=== PATIENT | male | born 1945 | race Caucasian/White ===

== ENCOUNTER 2019-12-24 22:19 | Emergency (ER) | payer MEDICARE, OTHER ==
--- NOTE | 2019-12-24 22:38 | EDM.PDOC ---
ED HPI GENERAL MEDICAL PROBLEM - General Chief Complaint: Genitourinary Problem Stated Complaint: UNABLE TO URINATE Time Seen by Provider: 12/24/19 22:36 - History of Present Illness INITIAL COMMENTS - FREE TEXT/NARRATIVE: 74-year-old male presents the emergency room with the inability to void. Patient had 3 stents placed in his right leg at the end of last week. He was discharged in the hospital on Saturday with a Laureano in place. He was also started on Flomax at that point. Today the patient saw his regular physician who remove that the catheter. This was done around 4:00 this afternoon the patient has had difficulty voiding since then he was able to get a stream going just briefly. And he presents wondering if he needs to have a catheter placed again. He denies any fevers or chills or abdominal pain Bladder Pain Score (Numeric/FACES): 4 - Related Data Allergies Allergy/AdvReac Type Severity Reaction Status Date / Time No Known Allergies Allergy Verified 12/24/19 22:33 Home Meds: Home Meds Nitrofurantoin Monohyd/M-Cryst [Macrobid 100 mg Capsule] 100 mg PO BID #13 capsule 12/25/19 [Rx] ED ROS GENERAL - Review of Systems Review Of Systems: See Below Constitutional: Reports: No Symptoms HEENT: Reports: No Symptoms Respiratory: Reports: No Symptoms Cardiovascular: Reports: No Symptoms GI/Abdominal: Reports: No Symptoms : Reports: Urinary Retention ED EXAM, GI/ABD - Physical Exam Exam: See Below Exam Limited By: No Limitations General Appearance: Alert, No Apparent Distress Head: Atraumatic, Normocephalic Neck: Normal Inspection, Supple, Non-Tender, Full Range of Motion Respiratory/Chest: No Respiratory Distress, Lungs Clear, Normal Breath Sounds Cardiovascular: Regular Rate, Rhythm, No Edema, No Murmur GI/Abdominal Exam: Normal Bowel Sounds, Soft, Other (He has mild discomfort over the bladder). No: Guarding, Rigid, Rebound Course - Vital Signs Last Recorded V/S: Last Vital Signs Temp 36.2 C 12/24/19 22:39 Pulse 72 12/24/19 22:39 Resp 20 12/24/19 22:39 BP 142/85 H 12/24/19 22:39 Pulse Ox 99 12/24/19 22:39 - Orders/Labs/Meds Orders: Active Orders 24 hr Category Date Time Status CULTURE URINE [RM] Stat Lab 12/24/19 23:51 Received Labs: Laboratory Tests 12/24/19 Range/Units 23:51 Urine Color Yellow (Yellow) Urine Appearance Clear (Clear) Urine pH 6.0 (5.0-8.0) Ur Specific [place] 1.015 (1.005-1.030) Urine Protein Negative (Negative) Urine Glucose (UA) Negative (Negative) Urine Ketones Negative (Negative) Urine Occult Blood 1+ H (Negative) Urine Nitrite Negative (Negative) Urine Bilirubin Negative (Negative) Urine Urobilinogen 0.2 (0.2-1.0) Ur Leukocyte Esterase 1+ H (Negative) Urine RBC 5-10 H (0-5) /hpf Urine WBC 5-10 H (0-5) /hpf Ur Epithelial Cells 0-5 (0-5) /hpf Urine Bacteria Rare (FEW) /hpf Urine Mucus Not seen (FEW) /hpf - Re-Assessments/Exams Free Text/Narrative Re-Assessment/Exam: 12/24/19 23:42 Was able to void about 50 cc after bladder scan showed about 500 cc. At this po int waiting on urinalysis. At this point I really do not want us put another catheter in place and the patient is in agreement to this understanding he may be back tomorrow to have a catheter placed we will have him work on bladder training exercises so he can get his stream going on a more regular basis. The patient is in full agreement to this. He understands fully that he may need a catheter placed anyway but we will give it a shot to see if we can save him the problems associated with the catheter. 12/25/19 00:45 Urinalysis is complete potentially he could have an early urinary tract in fection developing I will go and start him on a week's worth of Macrobid as he is can have some urinary retention issues which increases the likelihood of developing an infection. Departure - Departure Time of Disposition: 00:45 Disposition: Home, Self-Care 01 Clinical Impression: Urinary retention due to benign prostatic hyperplasia - Discharge Information Instructions: Miah Tam Referrals: Luiz Albrecht MD [Primary Care Provider] - Forms: ED Department Discharge Additional Instructions: Return to the emergency room with any questions problems or if unable to get your stream going. You have been started on a antibiotic as your urine is suggestive of a possible developing urinary tract infection and with your urinary retention your risk of developing a infection is much higher. You have been started on Macrobid take 1 twice daily until all gone. Follow-up with your regular healthcare provider as scheduled. Sepsis Event Note (ED) - Focused Exam Vital Signs: Vital Signs Temp Pulse Resp BP Pulse Ox 12/24/19 22:39 36.2 C 72 20 142/85 H 99 - My Orders Last 24 Hours: My Active Orders 12/24/19 23:51 CULTURE URINE [RM] Stat - Assessment/Plan Last 24 Hours: My Active Orders 12/24/19 23:51 CULTURE URINE [RM] Stat
[2019-12-25] MEDS ORDERED: Nitrofurantoin Monohydrate/Macrocrystalline 100 MG Cap PO ONE (00:48)
== END 2019-12-25 01:05 | disposition home or self-care (01) ==
LOC: JD.ED 22:19
DX: N40.1 Benign prostatic hyperplasia with lower urinary tract symptoms (principal); R33.8 Other retention of urine
CPT/HCPCS: 81001; 87086; 99283; A9270

== ENCOUNTER 2019-12-26 17:31 | Emergency (ER) | payer MEDICARE, OTHER ==
--- NOTE | 2019-12-26 18:28 | EDM.PDOC ---
ED HPI GENERAL MEDICAL PROBLEM - General Chief Complaint: Lower Extremity Injury/Pain Stated Complaint: ANKLE SWELLING POSSIBLE BLOOD CLOT Time Seen by Provider: 12/26/19 18:07 Source of Information: Reports: Patient History Limitations: Reports: No Limitations - History of Present Illness INITIAL COMMENTS - FREE TEXT/NARRATIVE: Patient is a 74-year-old male presenting to the emergency department with complaints of swelling to his right ankle. He had an artery cutdown in his left lower extremity on 17 December of this year. This was done with Dr. Goldstein, vascular surgeon at [facility] in [place]. He states that he contacted [facility] today to let them know of the swelling and they requested he come to the ER to have an ultrasound of his lower extremity done to look for blood clots. He denies any pain to the lower extremity. Denies a history of blood clots. States that he takes an aspirin daily for his heart and since her surgery has been started on Plavix. - Related Data Allergies Allergy/AdvReac Type Severity Reaction Status Date / Time No Known Allergies Allergy Verified 12/24/19 22:33 Home Meds: Home Meds Nitrofurantoin Monohyd/M-Cryst [Macrobid 100 mg Capsule] 100 mg PO BID #13 capsule 12/25/19 [Rx] Past Medical History HEENT History: Reports: Cataract Cardiovascular History: Reports: Hypertension, Other (See Below) Other Cardiovascular History: stress test for jan 06 Gastrointestinal History: Reports: GERD Genitourinary History: Reports: Prostate Disorder Musculoskeletal History: Reports: Arthritis, Gout - Infectious Disease History Infectious Disease History: Reports: Novel Coronavirus - Past Surgical History Cardiovascular Surgical History: Reports: Other (See Below) Other Cardiovascular Surgeries/Procedures: arterial cutdown of right femoral Social & Family History - Tobacco Use Smoking Status *Q: Never Smoker - Caffeine Use Caffeine Use: Reports: Coffee, Soda - Recreational Drug Use Recreational Drug Use: No Review of Systems - Review of Systems Review Of Systems: See Below Constitutional: Reports: No Symptoms. Denies: Chills, Fever Eyes: Reports: No Symptoms Ears: Reports: No Symptoms Nose: Reports: No Symptoms Mouth/Throat: Reports: No Symptoms Respiratory: Reports: No Symptoms Cardiovascular: Reports: Edema (Right ankle) GI/Abdominal: Reports: No Symptoms Genitourinary: Reports: No Symptoms Musculoskeletal: Reports: No Symptoms Skin: Reports: No Symptoms Neurological: Reports: No Symptoms Psychiatric: Reports: No Symptoms ED EXAM, GENERAL - Physical Exam Exam: See Below General Appearance: Alert, WD/WN, No Apparent Distress Respiratory/Chest: No Respiratory Distress, Lungs Clear, Normal Breath Sounds, No Accessory Muscle Use, Chest Non-Tender Cardiovascular: Normal Peripheral Pulses, Regular Rate, Rhythm, No Gallop, No JVD, No Murmur, No Rub, Other (1+ edema to right ankle) Peripheral Pulses: 2+: Dorsalis Pedis (R) Extremities: Normal Inspection, Normal Range of Motion, Non-Tender, Normal Capillary Refill, No Pedal Edema Neurological: Alert, Oriented, CN II-XII Intact, Normal Cognition, Normal Gait, Normal Reflexes, No Motor/Sensory Deficits Psychiatric: Normal Affect, Normal Mood Skin Exam: Other (well approximated, scabbed incision to right groin. Small amount of errythema surrounding incision. No warmth, edema, or drainage.) Course - Vital Signs Last Recorded V/S: Last Vital Signs Temp 97.6 F 12/26/19 17:52 Pulse 66 12/26/19 17:52 Resp 16 12/26/19 17:52 BP 130/64 12/26/19 17:52 Pulse Ox 96 12/26/19 17:52 - Orders/Labs/Meds Orders: Active Orders 24 hr Category Date Time Status Influenza Vaccine Charge [] .DISCHARGE Care 12/26/19 18:17 Active VL Duplex Lwr Ext Veins Ltd Rt [US] Stat Exams 12/26/19 18:18 Taken Meds: Medications Discontinued Medications Generic Name Dose Route Start Last Admin Trade Name Freq PRN Reason Stop Dose Admin Influenza Virus Vaccine 1 each 12/26/19 18:16 Pharmacy To Dose - Influenza Vaccine IM 12/26/19 18:17 ONETIME ONE Influenza Virus Vaccine 240 mcg 12/26/19 18:30 12/26/19 19:36 Fluzone High-Dose Quad 2020-21 IM 12/26/19 18:31 240 mcg .ONCE ONE Administration - Re-Assessments/Exams Free Text/Narrative Re-Assessment/Exam: Patient is a 74-year-old male presenting to the emergency department with concerns of mild swelling to his right ankle after having an artery cutdown towards the end of November. He called and spoke with [facility] in [place] and they recommended he have an ultrasound of his lower extremity done to rule out blood clots. Denies any history of blood clots. He is currently taking Plavix and a baby aspirin. On exam, he does have 1+ edema to the right ankle. There is no warmth or redness to the area. Denies any pain or tenderness. I have ordered a venous Doppler ultrasound of the right lower extremity. 12/26/19 20:00 Venous Doppler of the right lower extremity was negative for DVT. Patient discussed that he has been having some problems having bowel movements. Discussed use of MiraLAX as needed. He is agreement with this plan. Recommend follow-up with his vascular surgeon as scheduled. Return to ER for any worsening symptoms. Discharge instructions as documented. Departure - Departure Time of Disposition: 20:01 Disposition: Home, Self-Care 01 Condition: Good Clinical Impression: Peripheral edema - Discharge Information Instructions: Peripheral Edema Referrals: Luiz Albrecht MD [Primary Care Provider] - Bryan Goldstein MD [Ordering Only Provider] - Forms: ED Department Discharge Additional Instructions: You were seen in the emergency department today for some swelling to your right ankle after having an artery cutdown done on 17 December. Ultrasound was completed of your right lower extremity and was negative for any blood clots. Recommend that you elevate your leg when at rest. With regards to your difficulty having bowel movements. I would recommend that you try using [id number] MiraLAx daily. You may use this in addition to your Metamucil as needed. If you experience any new or worsening symptoms of concern, please do not hesitate to return to the emergency department. Sepsis Event Note (ED) - Evaluation Sepsis Screening Result: No Definite Risk - Focused Exam Vital Signs: Vital Signs Temp Pulse Resp BP Pulse Ox 12/26/19 17:52 97.6 F 66 16 130/64 96 - My Orders Last 24 Hours: My Active Orders 12/26/19 18:17 Influenza Vaccine Charge [RC] .DISCHARGE 12/26/19 18:18 VL Duplex Lwr Ext Veins Ltd Rt [US] Stat - Assessment/Plan Last 24 Hours: My Active Orders 12/26/19 18:17 Influenza Vaccine Charge [RC] .DISCHARGE 12/26/19 18:18 VL Duplex Lwr Ext Veins Ltd Rt [US] Stat
[2019-12-26] MEDS ORDERED: FLU Vacc QV2020-21(65YR UP)/PF 240 MCG/0.7 ML Syringe IM ONE (18:30)
== END 2019-12-26 20:15 | disposition home or self-care (01) ==
LOC: JD.ED 17:31
DX: R60.0 Localized edema (principal); I10 Essential (primary) hypertension; Z86.19 Personal history of other infectious and parasitic diseases
CPT/HCPCS: 90662; 93971; 99283; G0008; 99282

== ENCOUNTER 2020-06-10 18:26 | Emergency (ER) | payer MEDICARE, OTHER ==
[2020-06-10] MEDS ORDERED: Sodium Chloride 0.9% 10 ML Syringe FLUSH PRN (18:45)
[2020-06-10] MEDS ORDERED: Dicyclomine 10 MG Cap PO ONE (18:47)
[2020-06-10] MEDS ORDERED: Hyoscyamine 0.125 MG Tab.SL SL ONE (18:47)
--- NOTE | 2020-06-10 19:15 | EDM.PDOC ---
ED HPI GENERAL MEDICAL PROBLEM - General Chief Complaint: Chest Pain Stated Complaint: CHEST PRESSURE Time Seen by Provider: 06/10/20 18:35 Source of Information: Reports: Patient History Limitations: Reports: No Limitations - History of Present Illness INITIAL COMMENTS - FREE TEXT/NARRATIVE: 74-year-old male presents to the emergency department today with complaints with chest pressure. Patient states he has had intermittent chest pressure since Saturday after receiving his second Covid vaccination. Patient states it does come and go however when he belches it seems to relieve the pressure. Patient does admit to having a history of GERD. He states on Saturday evening he did have a fever however he had had his second Covid vaccination that day and he has not had a fever since. Patient states on Saturday evening he woke up in the middle the night to use the bathroom and when ambulating back to his room he did have some shortness of breath however he went to bed and put his CPAP on and this resolved. He has not had any further issues of shortness of breath since Saturday evening. And states that the time of triage that his chest pressure has resolved. Chest Pain Score (Numeric/FACES): 4 - Related Data Allergies Allergy/AdvReac Type Severity Reaction Status Date / Time No Known Allergies Allergy Verified 06/10/20 18:36 Home Meds: Home Meds Allopurinol [Zyloprim] 100 mg PO DAILY 06/10/20 [History] Irbesartan/Hydrochlorothiazide [Irbesartan-Hctz 150-12.5 mg Tb] 1 tab PO DAILY 06/10/20 [History] Metoprolol Succinate 50 mg PO DAILY 06/10/20 [History] Omeprazole 20 mg PO DAILY 06/10/20 [History] Pravastatin [Pravachol] 80 mg PO DAILY 06/10/20 [History] Tamsulosin [Flomax] 0.4 mg PO DAILY 06/10/20 [History] amLODIPine [Norvasc] 5 mg PO DAILY 06/10/20 [History] Past Medical History HEENT History: Reports: Cataract Cardiovascular History: Reports: High Cholesterol, Hypertension, Other (See Below) Other Cardiovascular History: stress test for jan 06 Gastrointestinal History: Reports: GERD Genitourinary History: Reports: Prostate Disorder Musculoskeletal History: Reports: Arthritis, Gout - Infectious Disease History Infectious Disease History: Reports: Novel Coronavirus - Past Surgical History Cardiovascular Surgical History: Reports: Other (See Below) Other Cardiovascular Surgeries/Procedures: arterial cutdown of right femoral Social & Family History - Tobacco Use Tobacco Use Status *Q: Former Tobacco User Used Tobacco, but Quit: Yes Month/Year Tobacco Last Used: 2 years ago - Caffeine Use Caffeine Use: Reports: Coffee - Recreational Drug Use Recreational Drug Use: No ED ROS GENERAL - Review of Systems Review Of Systems: Comprehensive ROS is negative, except as noted in HPI. ED EXAM, GENERAL - Physical Exam Exam: See Below Exam Limited By: No Limitations General Appearance: Alert, WD/WN, No Apparent Distress Ears: Normal External Exam, Hearing Grossly Normal Nose: Normal Inspection Throat/Mouth: Normal Inspection, Normal Lips, Normal Voice, No Airway Compromise Head: Atraumatic, Normocephalic Neck: Normal Inspection, Supple, Non-Tender, Full Range of Motion Respiratory/Chest: No Respiratory Distress, Lungs Clear, Normal Breath Sounds, No Accessory Muscle Use, Chest Non-Tender Cardiovascular: Normal Peripheral Pulses, Regular Rate, Rhythm, No Edema, No Murmur Peripheral Pulses: 2+: Radial (L), Radial (R), Dorsalis Pedis (L), Dorsalis Pedis (R) GI/Abdominal: Normal Bowel Sounds, Soft, Non-Tender, No Distention (Male) Exam: Deferred Rectal (Males) Exam: Deferred Back Exam: Normal Inspection, Full Range of Motion Extremities: Normal Inspection, Normal Range of Motion, Non-Tender, No Pedal Edema, Normal Capillary Refill Neurological: Alert, Oriented, Normal Cognition Psychiatric: Normal Affect, Normal Mood Skin Exam: Warm, Dry, Intact, Normal Color, No Rash Lymphatic: No Adenopathy #1 Interpretation EKG Date: 06/10/20 Time: 18:30 Rhythm: NSR Rate (Beats/Min): 74 [place]: Normal P-Wave: Present QRS: Normal ST-T: Normal QT: Normal EKG Interpretation Comments: Per Dr. 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 He states that this has been going on for the past 2 days and started after he received his second Covid vaccine. Patient states intermittent chest pressure is relieved when he belches. He states he did have a fever and chills on Saturday evening when he received his second Covid vaccine however he has not had any of the symptoms since. He denies any chest pain/pressure at the time of assessment. Denies any shortness of breath or dizziness. States that he did have an episode of shortness of breath on Saturday evening when he woke up in the middle the night and ambulated back from the bathroom however he then did put his CPAP on and this resolved and he has not had any issues since. Patient does admit to a history of GERD. Denies any history of heart failure and is not taking diuretics. Has a history of hypertension. History of smoking since his teenage years however he quit about 2 years ago. I have ordered an EKG, chest x-ray and labs on this patient. I have also ordered for him to receive Levsin and Bentyl. Last Recorded V/S: Last Vital Signs Temp 97.8 F 06/10/20 18:31 Pulse 68 06/10/20 18:31 Resp 18 06/10/20 18:31 BP 185/78 H 06/10/20 18:31 Pulse Ox 97 06/10/20 18:31 - Orders/Labs/Meds Orders: Active Orders 24 hr Category Date Time Status EKG Documentation Completion [RC] STAT Care 06/10/20 18:45 Active Sodium Chloride 0.9% [Saline Flush] Med 06/10/20 18:45 Active 10 ml FLUSH ASDIRECTED PRN Saline Lock Insert [OM.PC] Stat Oth 06/10/20 18:45 Ordered Medication Orders Sodium Chloride (Sodium Chloride 0.9% 10 Ml Syringe) 10 ml FLUSH ASDIRECTED PRN PRN Reason: Keep Vein Open Last Admin: 06/10/20 19:00 Dose: 10 ml Documented by: MARIFER Labs: Laboratory Tests 06/10/20 06/10/20 Range/Units 18:35 18:35 WBC 5.51 (4.23-9.07) K/mm3 RBC 4.78 (4.63-6.08) M/mm3 Hgb 14.0 (13.7-17.5) gm/dl Hct 43.1 (40.1-51.0) % MCV 90.2 (79.0-92.2) fl MCH 29.3 (25.7-32.2) pg MCHC 32.5 (32.2-35.5) g/dl RDW Std Deviation 51.5 H (35.1-43.9) fL Plt Count 209 (163-337) K/mm3 MPV 10.2 (9.4-12.3) fl Neut % (Auto) 57.4 (34.0-67.9) % Lymph % (Auto) 21.4 L (21.8-53.1) % Stephens % (Auto) 16.3 H (5.3-12.2) % Eos % (Auto) 3.8 (0.8-7.0) Baso % (Auto) 0.9 (0.1-1.2) % Neut # (Auto) 3.16 (1.78-5.38) K/mm3 Lymph # (Auto) 1.18 L (1.32-3.57) K/mm3 Stephens # (Auto) 0.90 H (0.30-0.82) K/mm3 Eos # (Auto) 0.21 (0.04-0.54) K/mm3 Baso # (Auto) 0.05 (0.01-0.08) K/mm3 Manual Slide Review Normal smear Sodium 139 (136-145) mEq/L Potassium 3.7 (3.5-5.1) mEq/L Chloride 101 (98-107) mEq/L Carbon Dioxide 27 (21-32) mEq/L Anion Gap 14.7 (5-15) BUN 27 H (7-18) mg/dL Creatinine 1.9 H (0.7-1.3) mg/dL Est Cr Clr Drug Dosing 30.92 mL/min Estimated GFR (MDRD) 35 (>60) mL/min BUN/Creatinine Ratio 14.2 (14-18) Glucose 116 H (83-115) mg/dL Calcium 9.2 (8.5-10.1) mg/dL Magnesium 1.8 (1.8-2.4) mg/dl Total Bilirubin 0.5 (0.2-1.0) mg/dL AST 21 (15-37) U/L ALT 25 (16-63) U/L Alkaline Phosphatase 91 (46-116) U/L Troponin I < 0.017 (0.00-0.056) ng/mL Total Protein 7.4 (6.4-8.2) g/dl Albumin 3.6 (3.4-5.0) g/dl Globulin 3.8 gm/dL Albumin/Globulin Ratio 1.0 (1-2) Meds: Medications Generic Name Dose Route Start Last Admin Trade Name Freq PRN Reason Stop Dose Admin Sodium Chloride 10 ml 06/10/20 18:45 06/10/20 19:00 Sodium Chloride 0.9% 10 Ml Syringe FLUSH 10 ml ASDIRECTED PRN Administration Keep Vein Open Discontinued Medications Generic Name Dose Route Start Last Admin Trade Name Freq PRN Reason Stop Dose Admin Dicyclomine HCl 20 mg 06/10/20 18:47 06/10/20 19:17 Dicyclomine 10 Mg Cap PO 06/10/20 18:48 20 mg ONETIME ONE Administration Hyoscyamine 0.125 mg 06/10/20 18:47 06/10/20 19:18 Hyoscyamine 0.125 Mg Tab.Sl SL 06/10/20 18:48 0.125 mg ONETIME ONE Administration - Re-Assessments/Exams Free Text/Narrative Re-Assessment/Exam: 06/10/20 19:47 Hematology is essentially unremarkable, chemistry reveals sodium 139, potassium 3.7, BUN 27, creatinine 1.9, magnesium 1.8, troponin less than 0.017. Radiologist impression portable view of the chest: Nothing acute is identified on portable chest x-ray. Patient will be discharged home with recommendations that he follow-up with his primary care provider early next week. Departure - Departure Time of Disposition: 19:48 Disposition: Home, Self-Care 01 Condition: Good Clinical Impression: GERD (gastroesophageal reflux disease) Qualifiers: Esophagitis presence: esophagitis presence not specified Qualified Code(s): K21.9 - Gastro-esophageal reflux disease without esophagitis Instructions: Food Choices for Gastroesophageal Reflux Disease, Adult Referrals: Luiz Albrecht MD [Primary Care Provider] - Forms: ED Department Discharge Additional Instructions: You are seen in the emergency department this evening with complaints of chest pressure. Full cardiac work-up was completed and this was found to be unremarkable. You were given medications to help relax the esophageal sphincter as the discomfort you are feeling is likely due to GERD. You stated that pressure is relieved whenever you belch. You will be discharged home. Follow- up with your primary care provider next week. Avoid spicy or caffeinated beverages as these can irritate reflux. Also recommend that you sit upright for about 30 minutes after every meal to allow for digestion and decrease the likelihood of reflux. Should your condition worsen or change do not hesitate to return to the emergency department. Sepsis Event Note (ED) - Evaluation Sepsis Screening Result: No Definite Risk - Focused Exam Vital Signs: Vital Signs Temp Pulse Resp BP Pulse Ox 06/10/20 18:31 97.8 F 68 18 185/78 H 97 - My Orders Last 24 Hours: My Active Orders 06/10/20 18:45 EKG Documentation Completion [RC] STAT Sodium Chloride 0.9% [Saline Flush] 10 ml FLUSH ASDIRECTED PRN Saline Lock Insert [OM.PC] Stat - Assessment/Plan Last 24 Hours: My Active Orders 06/10/20 18:45 EKG Documentation Completion [RC] STAT Sodium Chloride 0.9% [Saline Flush] 10 ml FLUSH ASDIRECTED PRN Saline Lock Insert [OM.PC] Stat
--- NOTE | 2020-06-10 19:39 | CR ---
Chest: Portable view of the chest was was obtained. Comparison: No prior chest imaging is available. Heart size and mediastinum are normal. Lungs are clear with no acute parenchymal change. No acute osseous abnormality is definitely appreciated. Impression: 1. Nothing acute is identified on portable chest x-ray. Diagnostic code #1
== END 2020-06-10 19:59 | disposition home or self-care (01) ==
LOC: JD.ED 18:26
DX: K21.9 Gastro-esophageal reflux disease without esophagitis (principal); E78.00 Pure hypercholesterolemia, unspecified; I10 Essential (primary) hypertension; I44.0 Atrioventricular block, first degree; Z87.891 Personal history of nicotine dependence; Z79.899 Other long term (current) drug therapy
CPT/HCPCS: 36415; 71045; 80053; 83735; 84484; 85025; 93005; 99285; A9270; 93010; 99283